=== PATIENT | female | born 1985 | race Hispanic/Latino ===

== ENCOUNTER 2019-04-10 07:48 | Day surgery (SDC) | payer BC ==
[2019-04-06 12:08] LABS: BASOPHILS % (AUTO) 0.7 % (0.0-5.0); EOSINOPHILS % (AUTO) 0.9 % (0.0-8.0); HEMATOCRIT 39.6 % (36-48); LYMPHOCYTES % (AUTO) 37.3 % (21.0-51.0); MEAN CORPUSCULAR HEMOGLOBIN 28.9 pg (27.0-33.0); MEAN CORPUSCULAR HGB CONC 34.8 g/dL (32.0-36.0); MONOCYTES % (AUTO) 6.2 % (3.0-13.0); NEUTROPHILS % (AUTO) 54.9 % (40.0-77.0); PLATELET COUNT (AUTO) 336 K/uL (130-400); RED BLOOD CELL COUNT(AUTO) 4.77 MIL/uL (4.00-5.50); RED CELL DISTRIBUTION WIDTH 12.8 % (11.0-15.5); WHITE BLOOD COUNT (AUTO) 8.1 K/uL (4.8-10.8)
[2019-04-06 12:20] VITALS: BP 99/47
[~2019-04-10] VITALS: Ht 157.5 cm; Wt 82.1 kg
[2019-04-10] VITALS (13 sets, daily range): BP systolic 101–144; BP diastolic 58–78
[2019-04-10] MEDS ORDERED: LACTATED RINGERS 1000ML 1,000 ML IV SCH (08:00)
[2019-04-10] MEDS: CEFAZOLIN SODIUM 1 GM VIAL IVP ONE ×2 (08:30→08:36)
[2019-04-10] MEDS ORDERED: LIDOCAINE PF 2% 5ML ABBOJECT ONE (08:35)
[2019-04-10] MEDS ORDERED: DEXAMETHASONE SOD PHOSPHATE 10MG/ML 1ML VIAL ONE (08:35)
[2019-04-10] MEDS ORDERED: FENTANYL CITRATE PF 50 MCG/1 ML 2ML VIAL ONE (08:36)
[2019-04-10] MEDS ORDERED: MIDAZOLAM HCL 1 MG/ML 2ML VIAL ONE (08:36)
[2019-04-10] MEDS ORDERED: PROPOFOL 10 MG/ML 20ML VIAL IV ONE (08:36)
[2019-04-10] MEDS ORDERED: ONDANSETRON HCL 4 MG/2 ML VIAL ONE (08:36)
[2019-04-10] MEDS ORDERED: VASOPRESSIN 20 UNITS/ML 1ML VIAL ONE (08:37)
[2019-04-10] MEDS ORDERED: STRONG IODINE SOLN 14ML BOTTLE ONE (08:38)
[2019-04-10] MEDS ORDERED: MEPERIDINE-PF 25 MG/ML SYG ONE ×2 (09:38→09:51)
== END 2019-04-10 11:15 | disposition home or self-care (01) ==
LOC: DAH 07:48
PROVIDERS: ATTEND Specialist
DX: D06.7 Carcinoma in situ of other parts of cervix (principal); E66.9 Obesity, unspecified; Z68.33 Body mass index [BMI] 33.0-33.9, adult; Z98.890 Other specified postprocedural states; Z79.899 Other long term (current) drug therapy; Z90.49 Acquired absence of other specified parts of digestive tract; Z82.49 Family history of ischemic heart disease and other diseases of the circulatory system; Z83.3 Family history of diabetes mellitus
CPT/HCPCS: 36415; 57520; 84703; 85025; 88307; A4215; A4221; A4222; A4223; A4351; A4663; A6260; C1769; J0690; J1100; J2001; J2175 ×2; J2250; J2405; J2704; J3010; J3490; J7120